=== PATIENT | female | born 1965 | race Caucasian/White ===

== ENCOUNTER 2023-06-27 13:45 | Emergency (ER) | payer MEDICARE, OTHER ==
[~2023-06-27] VITALS: Ht 167.6 cm; Wt 67.3 kg
[~2023-06-27 13:45] MED LIST: NORCO10T PO
[2023-06-27 14:00] VITALS: TEMP 98.1
[2023-06-27 14:15] LABS: BASOPHILS % (AUTO) 0.4 % (0-1); EOSINOPHILS # (AUTO) 0.1 X10'3 (0-0.9); EOSINOPHILS % (AUTO) 1.1 % (0-6); HEMATOCRIT 40.9 % (35.0-45.0); HEMOGLOBIN 13.7 g/dl (12.0-16.0); LYMPHOCYTES # (AUTO) 2.5 X10'3 (1.1-4.8); LYMPHOCYTES % (AUTO) 26.7 % (21-51); MEAN CORPUSCULAR HEMOGLOBIN 32.8 PG (27.0-31.0); MEAN CORPUSCULAR HGB CONC 33.6 g/dL (33.0-36.5); MEAN CORPUSCULAR VOLUME 97.6 FL (78-98); MEAN PLATELET VOLUME 7.1 FL (7.4-10.4); MONOCYTES # (AUTO) 0.6 X10'3 (0-0.9); MONOCYTES % (AUTO) 6.5 % (2-12); NEUTROPHILS # (AUTO) 6.1 X10'3 (1.8-7.7); NEUTROPHILS % (AUTO) 65.3 % (42-75); PLATELET COUNT 342 X10'3 (140-440); RED BLOOD COUNT 4.19 X10'6 (4.20-5.60); RED CELL DISTRIBUTION WIDTH 13.6 % (11.5-14.5); WHITE BLOOD COUNT 9.3 X10'3 (4.5-11.0)
[2023-06-27 14:36] LABS: ALANINE AMINOTRANSFERASE 14 U/L (12-78); ALBUMIN/GLOBULIN RATIO 1.3 (1.1-1.5); ALKALINE PHOSPHATASE 63 IU/L (46-116); ANION GAP 11 (8-16); ASPARTATE AMINO TRANSFERASE 10 U/L (10-37); BILIRUBIN,TOTAL 0.4 MG/DL (0.1-1.0); BLOOD UREA NITROGEN 14 MG/DL (7-18); BUN/CREATININE RATIO 17.5 (10.0-20.0); CALCIUM 8.6 MG/DL (8.5-10.1); CHLORIDE 106 MMOL/L (99-107); GLUCOSE 116 MG/DL (70-104); POTASSIUM 3.6 MMOL/L (3.5-5.1); SODIUM 144 MMOL/L (135-145); TOTAL PROTEIN 7.2 G/DL (6.4-8.2); eCRCL 71 ML/MIN; eGFR 73 ML/MIN
[2023-06-27 14:43] LABS: PRO BRAIN NATRIURETIC PEPTIDE 62 PG/ML (0-125)
[2023-06-27 19:11] VITALS: BP 144/78; PULSE 85; RESP 18; O2SAT 99
[2023-06-27] MEDS ORDERED: NAPR-56 PO (19:13)
== END 2023-06-27 19:16 | disposition home or self-care (01) ==
LOC: ER 13:46
DX: R07.89 Other chest pain (principal); R42 Dizziness and giddiness; R53.1 Weakness; Z79.899 Other long term (current) drug therapy
CPT/HCPCS: 36415; 71045; 80053; 83880; 84484; 85025; 93005; 99285

== ENCOUNTER 2023-08-21 09:11 | Day surgery (SDC) | payer MEDICARE, OTHER ==
[~2023-08-21] VITALS: Ht 167.6 cm; Wt 66.4 kg
[2023-08-21] VITALS (21 sets, daily range): BP systolic 81–127; BP diastolic 36–74; PULSE 60–79; RESP 14–17; TEMP 98.1; O2SAT 92–100
[2023-08-21] MEDS ORDERED: LIDOcaine 1% 30ml preserv. free vial ONE (09:39)
[2023-08-21] MEDS ORDERED: nitroGLYCERIN 0.4mg SUBLingual tab SL PRN (09:40)
[2023-08-21] MEDS ORDERED: iohexol 350MG/ML 100ml bottle IV ONE (09:40)
[2023-08-21] MEDS ORDERED: midazolam 1 mg/ML 2ml injection ONE ×2 (09:40→10:43)
[2023-08-21] MEDS ORDERED: iohexol 350 MG/ML 50ML vial IV ONE (09:40)
[2023-08-21] MEDS ORDERED: fentaNYL/PF 50MCG/1 ML 2ML syringe ONE ×2 (09:40→11:11)
[2023-08-21] MEDS: diphenhydrAMINE 25mg capsule PO PRN (09:50)
[2023-08-21] MEDS: LORazepam 0.5 MG tablet PO PRN (09:50)
[2023-08-21] MEDS: normal saline 1,000 ML IV SCH (09:51)
[2023-08-21] MEDS ORDERED: ASPI-1265 PO (09:57)
[2023-08-21] MEDS ORDERED: Co Q-10 PO (09:57)
[2023-08-21] MEDS ORDERED: FLUO10CA28 PO (09:57)
[2023-08-21] MEDS ORDERED: ROSU10TA2 PO (09:57)
[2023-08-21 10:10] LABS: BASOPHILS # (AUTO) 0.1 X10'3 (0-0.2); BASOPHILS % (AUTO) 0.8 % (0-1); EOSINOPHILS # (AUTO) 0.2 X10'3 (0-0.9); EOSINOPHILS % (AUTO) 2.5 % (0-6); HEMATOCRIT 34.4 % (35.0-45.0); HEMOGLOBIN 11.8 g/dl (12.0-16.0); LYMPHOCYTES # (AUTO) 2.4 X10'3 (1.1-4.8); LYMPHOCYTES % (AUTO) 32.9 % (21-51); MEAN CORPUSCULAR HEMOGLOBIN 33.1 PG (27.0-31.0); MEAN CORPUSCULAR HGB CONC 34.2 g/dL (33.0-36.5); MEAN CORPUSCULAR VOLUME 96.9 FL (78-98); MEAN PLATELET VOLUME 7.2 FL (7.4-10.4); MONOCYTES # (AUTO) 0.4 X10'3 (0-0.9); MONOCYTES % (AUTO) 5.7 % (2-12); NEUTROPHILS # (AUTO) 4.2 X10'3 (1.8-7.7); NEUTROPHILS % (AUTO) 58.1 % (42-75); PLATELET COUNT 343 X10'3 (140-440); RED BLOOD COUNT 3.56 X10'6 (4.20-5.60); RED CELL DISTRIBUTION WIDTH 13.1 % (11.5-14.5); WHITE BLOOD COUNT 7.3 X10'3 (4.5-11.0)
[2023-08-21 10:21] LABS: ALBUMIN 3.6 G/DL (3.4-5.0); ANION GAP 11 (8-16); BLOOD UREA NITROGEN 16 MG/DL (7-18); BUN/CREATININE RATIO 23.2 (10.0-20.0); CALCIUM 8.6 MG/DL (8.5-10.1); CHLORIDE 108 MMOL/L (99-107); CREATININE 0.69 MG/DL (0.40-0.90); GLUCOSE 94 MG/DL (70-104); POTASSIUM 3.8 MMOL/L (3.5-5.1); SODIUM 143 MMOL/L (135-145); TOTAL CARBON DIOXIDE 23.7 MMOL/L (24-32); eCRCL 82 ML/MIN; eGFR 87 ML/MIN
[2023-08-21 10:23] LABS: APTT 26 SECONDS (22-32); PROTHROMBIN TIME 10.3 SECONDS (9.0-12.0)
[2023-08-21] MEDS ORDERED: ALPR0.5T2 PO (10:26)
[2023-08-21] MEDS ORDERED: HYDR-3973 PO (10:26)
[2023-08-21 11:24] LABS: PRO BRAIN NATRIURETIC PEPTIDE 147 PG/ML (0-125)
[2023-08-21] MEDS ORDERED: normal saline 1000ml 1,000 ML IV SCH (16:09)
[2023-08-21] MEDS: acetaminophen 325mg tablet PO PRN (17:05)
== END 2023-08-21 18:10 | disposition home or self-care (01) ==
LOC: SSTAY O 09:11
PROVIDERS: ATTEND Internal Medicine Cardiovascular Disease
DX: R94.39 Abnormal result of other cardiovascular function study (principal); I20.9 Angina pectoris, unspecified; G47.30 Sleep apnea, unspecified; J44.9 Chronic obstructive pulmonary disease, unspecified
CPT/HCPCS: 36415; 71046; 80048; 83880; 84484; 85025; 85610; 85730; 93458; 99152; 99153; J1644; J2250; J3010; J3490; J7030; Q0163; Q9967; 96360; A4615; A6258; C1760